=== PATIENT | male | born 1955 | race Caucasian/White ===

== ENCOUNTER → 2018-08-30 | Outpatient (REF) | payer MEDICARE ==
[~2018-08-30] MED LIST: ASPIRIN81 MG PO; AUGMENTIN875TAB OR; AVELOX400 MG PO; BOOSTRIX IM; BP MED; CEPHALEXIN500 MG PO; CHOLESTEROL; CHOLESTEROL PILL; DOXYCYCL HYC100 MG OR; FLAGYL500 MG OR; FLORASTOR250 M1 PO; LORTAB 7.5 OR; NO MEDS; NORMAL SALIN0.9 % IV; PERCOCET 5/325M1 TAB PO; ROCEPHIN IV; VICODIN1 TAB OR; WARFARIN1 MG OR; XANAX0.25 MG OR; [UNRECOGNIZED DRUG - OTHER] IV
[2018-08-30 09:09] LABS: ANION GAP 12 (6-22 (CALC)); BUN 14 mg/dL (8-23); BUN/CREATININE RATIO 14 (12-20 (CALC)); CARBON DIOXIDE 26 mmol/l (22-30); CHLORIDE 108 mmol/l (95-108); GFR > 60 ML/MIN (>=60 (CALC)); GFR FOR AFR.AMER. > 60 ML/MIN (>=60 (CALC)); POTASSIUM 3.8 mmol/l (3.5-5.1); SODIUM 142 mmol/l (137-146)
== END | disposition home or self-care (01) ==
LOC: LAB 07:29
PROVIDERS: ATTEND Nurse Practitioner
DX: E78.49 Other hyperlipidemia (principal); I10 Essential (primary) hypertension; Z12.5 Encounter for screening for malignant neoplasm of prostate

== ENCOUNTER 2020-05-29 10:52 | Emergency (ER) | payer MEDICARE ==
[~2020-05-29] VITALS: Ht 175.3 cm; Wt 93.0 kg
[2020-05-29 11:33] LABS: HEMATOCRIT 45.7 % (39.0-50.0); HEMOGLOBIN 15.3 g/dl (14.0-18.0); IMMATURE GRANULOCYTES 0.6 % (0.0-5.0); MEAN CELL VOLUME 85.9 fL CALC (80.0-100.0); MEAN CORPUSCULAR HGB 28.8 pG CALC (26.0-32.0); MEAN CORPUSCULAR HGB CONC 33.5 g/dL CAL (32.0-36.0); NEUT# 7.31 thou/uL (1.82-7.42); RED BLOOD COUNT 5.32 mill/uL (4.70-6.10); RED CELL DISTRI WIDTH 13.2 % (11.5-15.5)
[2020-05-29 11:48] LABS: ALBUMIN 4.2 g/dL (3.2-5.0); ALKALINE PHOSPHATASE 58 u/l (38-126); ANION GAP 12 (6-22 (CALC)); BILIRUBIN, TOTAL 0.6 mg/dL (0.0-1.4); BUN 20 mg/dL (8-23); BUN/CREATININE RATIO 18 (12-20 (CALC)); CARBON DIOXIDE 28 mmol/l (22-30); CHLORIDE 107 mmol/l (95-108); CREATININE 1.1 mg/dL (0.7-1.3); GFR > 60 ML/MIN (>=60 (CALC)); GFR FOR AFR.AMER. > 60 ML/MIN (>=60 (CALC)); LIPASE 141 u/l (23-300); POTASSIUM 4.4 mmol/l (3.5-5.1); PROTHROMBIN TIME 10.4 SECONDS (9.0-12.5); SGOT/AST 37 u/l (19-48); SODIUM 143 mmol/l (137-146)
[2020-05-29 13:25] VITALS: BP 121/86
== END 2020-05-29 13:36 ==
LOC: ED 10:52
DX: S43.102A Unspecified dislocation of left acromioclavicular joint, initial encounter (principal); S06.9X1A Unspecified intracranial injury with loss of consciousness of 30 minutes or less, initial encounter; V80.010A Animal-rider injured by fall from or being thrown from horse in noncollision accident, initial encounter; Y93.52 Activity, horseback riding; Z95.0 Presence of cardiac pacemaker; Z79.01 Long term (current) use of anticoagulants

== ENCOUNTER 2024-06-04 16:07 | Inpatient (IN) | payer MEDICARE ==
[~2024-06-04] VITALS: Ht 175.3 cm; Wt 90.0 kg
[2024-06-04] MEDS ORDERED: methylPREDNISolone SODIUM SUCC 125 MG/2 ML SDV IV ONE (17:10)
[2024-06-04] MEDS ORDERED: IPRATROPIUM-Albuterol 0.5MG-2.5MG/3 ML NEB ONE (17:10)
[2024-06-04 17:22] LABS: ALBUMIN 4.1 g/dL (3.2-5.0); POTASSIUM 3.7 mmol/l (3.5-5.1); TOTAL PROTEIN 6.7 g/dL (6.3-8.2)
[2024-06-04 17:27] LABS: BILIRUBIN, TOTAL 1.1 mg/dL (0.2-1.3)
[2024-06-04 17:37] LABS: BASO% 0.6 % (0-3); EOS% 0.3 % (0-8); HEMATOCRIT 43.4 % (39.0-50.0); HEMOGLOBIN 15.3 g/dl (14.0-18.0); MEAN CELL VOLUME 82.5 fL CALC (80.0-100.0); MEAN CORPUSCULAR HGB 29.1 pG CALC (26.0-32.0); MEAN CORPUSCULAR HGB CONC 35.3 g/dL CAL (32.0-36.0); MONO% 12.3 % (2-13); NEUT# 1.9 thou/uL (1.82-7.42); NEUT% 61.5 % (42-76); RED BLOOD COUNT 5.26 mill/uL (4.70-6.10)
[2024-06-04 17:42] LABS: LYMPH% 24.3 % (15-41)
[2024-06-04] MEDS ORDERED: Iopamidol 370 (Isovue) 76% 100 ML SDV IV ONE (18:00)
[2024-06-04] MEDS ORDERED: ISOVUE-300 (Iopamidol) 100 ML SDV IV ONE (18:00)
[2024-06-04] MEDS ORDERED: AZITHROMYCIN 500 MG in SODIUM CHLORIDE 0.9% 250 ML IV ONE (20:50)
[2024-06-04] MEDS ORDERED: SODIUM CHLORIDE 0.9% 1,000 ML IV PRN (21:00)
[2024-06-04] MEDS ORDERED: ACETAMINOPHEN 325 MG/TAB PO PRN (21:05)
[2024-06-04] MEDS ORDERED: MAGNESIUM HYDROXIDE 30 ML UDC PO PRN (21:05)
[2024-06-04] MEDS ORDERED: IPRATROPIUM-Albuterol 0.5MG-2.5MG/3 ML NEB PRN (21:10)
[2024-06-04] MEDS ORDERED: methylPREDNISolone Sod Succ 40 MG/ML SDV IV SCH (22:00)
[2024-06-04 23:20] VITALS: BP 127/86
[2024-06-05 04:11] VITALS: BP 110/79
[2024-06-05 06:33] VITALS: BP 107/73
[2024-06-05 10:45] VITALS: BP 108/79
[2024-06-05 15:37] VITALS: BP 115/84
[2024-06-05 16:13] VITALS: BP 115/84
[2024-06-05] MEDS ORDERED: ENOXAPARIN SODIUM 40 MG/0.4 ML SYR SC SCH (21:00)
[2024-06-05] MEDS ORDERED: AZITHROMYCIN 500 MG in SODIUM CHLORIDE 0.9% 250 ML IV SCH (21:00)
[2024-06-06] VITALS (8 sets, daily range): BP systolic 100–121; BP diastolic 60–77
[2024-06-06 05:43] LABS: BASO% 0.1 % (0-3); HEMATOCRIT 45.1 % (39.0-50.0); HEMOGLOBIN 15.6 g/dl (14.0-18.0); IMMATURE GRANULOCYTES 0.8 % (0.0-5.0); LYMPH% 19.9 % (15-41); MEAN CELL VOLUME 85.7 fL CALC (80.0-100.0); MEAN CORPUSCULAR HGB 29.7 pG CALC (26.0-32.0); MEAN CORPUSCULAR HGB CONC 34.6 g/dL CAL (32.0-36.0); MONO% 5.2 % (2-13); NEUT# 5.31 thou/uL (1.82-7.42); RED BLOOD COUNT 5.26 mill/uL (4.70-6.10); RED CELL DISTRI WIDTH 13.4 % (11.5-15.5)
[2024-06-06 05:54] LABS: ALBUMIN 3.9 g/dL (3.2-5.0); CREATININE 0.8 mg/dL (0.7-1.3); MAGNESIUM 2.7 mg/dL (1.6-2.3); POTASSIUM 4.1 mmol/l (3.5-5.1); TOTAL PROTEIN 6.6 g/dL (6.3-8.2)
[2024-06-06] MEDS ORDERED: LISINOPRIL20 M1 PO (09:19)
[2024-06-06] MEDS ORDERED: ASPIRIN 81 LOW81 MG PO (09:20)
[2024-06-06] MEDS ORDERED: AZITHROMYCIN500 MG PO (09:21)
[2024-06-06] MEDS ORDERED: PREDNISONE10 MG PO (09:24)
[2024-06-07 00:01] VITALS: BP 102/68
[2024-06-07 04:17] VITALS: BP 108/73
[2024-06-07 05:32] LABS: BASO% 0.1 % (0-3); HEMATOCRIT 42.2 % (39.0-50.0); HEMOGLOBIN 14.3 g/dl (14.0-18.0); IMMATURE GRANULOCYTES 0.7 % (0.0-5.0); LYMPH% 12.6 % (15-41); MEAN CELL VOLUME 87.6 fL CALC (80.0-100.0); MEAN CORPUSCULAR HGB 29.7 pG CALC (26.0-32.0); MEAN CORPUSCULAR HGB CONC 33.9 g/dL CAL (32.0-36.0); MONO% 4.5 % (2-13); NEUT# 7.54 thou/uL (1.82-7.42); NEUT% 82.1 % (42-76); RED BLOOD COUNT 4.82 mill/uL (4.70-6.10); RED CELL DISTRI WIDTH 13.7 % (11.5-15.5)
[2024-06-07 05:34] LABS: ALBUMIN 3.3 g/dL (3.2-5.0); BILIRUBIN, TOTAL 0.7 mg/dL (0.2-1.3); CREATININE 0.8 mg/dL (0.7-1.3); MAGNESIUM 2.9 mg/dL (1.6-2.3); POTASSIUM 4.1 mmol/l (3.5-5.1); TOTAL PROTEIN 5.9 g/dL (6.3-8.2)
[2024-06-07 07:28] VITALS: BP 106/66
[2024-06-07 10:57] VITALS: BP 108/69
== END 2024-06-07 12:47 | disposition home health service (06) | DRG 193 ==
LOC: ED 16:07 → ED-I 20:30 → ED 21:07 → MS2 21:08
PROVIDERS: Nurse Practitioner; Nurse Practitioner Family; ADMIT Internal Medicine; ATTEND Internal Medicine
DX: J18.9 Pneumonia, unspecified organism (principal); J96.01 Acute respiratory failure with hypoxia; I10 Essential (primary) hypertension; E78.5 Hyperlipidemia, unspecified; F79 Unspecified intellectual disabilities; Z95.0 Presence of cardiac pacemaker; Z87.891 Personal history of nicotine dependence
CPT/HCPCS: J0456; J0696; J1650; Q9967